=== PATIENT | female | born 1990 | race Asian ===

== ENCOUNTER 2019-10-09 16:45 | Emergency (ER) | payer SELFPAY ==
[~2019-10-09] VITALS: Ht 177.8 cm; Wt 68.5 kg
[2019-10-09 17:05] VITALS: Ht 177.8 cm; Wt 68.5 kg
[2019-10-09 17:34] LABS: BASOPHIL % 0.5 % (0-2); PLATELET COUNT 285 x10^3mcL (130-400); RED CELL DISTRIBUTION WIDTH 11.7 % (11.5-14.5)
[2019-10-09 19:37] VITALS: BP 125/85
== END 2019-10-09 19:37 | disposition home or self-care (01) ==
LOC: ED 16:45
PROVIDERS: Emergency Medicine
DX: O20.0 Threatened abortion (principal)
CPT/HCPCS: 36415